=== PATIENT | female | born 1965 | race Caucasian/White ===

== ENCOUNTER 2020-04-07 11:43 | Outpatient (CLI) | payer BC ==
[2020-04-07] VITALS (21 sets, daily range): BP systolic 113–155; BP diastolic 64–98
== END 2020-04-07 23:59 | disposition home or self-care (01) ==
LOC: CARD DIAG 11:43
PROVIDERS: ATTEND Internal Medicine Cardiovascular Disease
DX: R42 Dizziness and giddiness (principal)
CPT/HCPCS: 93660